=== PATIENT | female | born 1985 | race Caucasian/White ===

== ENCOUNTER 2020-10-28 22:17 | Emergency (ER) | payer SELFPAY ==
[~2020-10-28 22:17] MED LIST: PREN1TAB4
== END 2020-10-28 23:50 | disposition left against medical advice (07) ==
LOC: EDUNIT# 22:17 → ER 22:20
DX: O26.892 Other specified pregnancy related conditions, second trimester (principal); R10.9 Unspecified abdominal pain; Z3A.14 14 weeks gestation of pregnancy

== ENCOUNTER 2022-09-04 13:02 | Inpatient (IN) | payer OTHER, MEDICAID ==
[~2022-09-04] VITALS: Ht 155 cm; Wt 63.5 kg
[2022-09-04] VITALS (7 sets, daily range): BP systolic 111–129; BP diastolic 63–86
[2022-09-04] MEDS ORDERED: NS IV 1000 ML 1,000 ML IV STA (13:13)
--- NOTE | 2022-09-04 13:13 | ED Abdominal Pain ---
General Chief Complaint: Abdominal/GI Problems Stated Complaint: ABD PAIN Nursing Triage Note: PT TO [facility] BY [facility] WITH CC OF RLQ PAIN FOR ABOUT 4 DAYS, WAS TOLD 2 DAYS AGO AT ANOTHER HOSP THAT IT WAS HER GALLBLADDER Source of Information: Patient, EMS History of Present Illness Date Seen by Provider: Sep 04, 2022 Time Seen by Provider: 13:05 Initial Comments Patient is a 37-year-old female who presents to the emergency room with a chief complaint of right lower quadrant abdominal pain onset 3 to 4 days ago. She has been seen by another facility and was told that possibly her gallbladder was bad. She has been taking frzy-bhw-wkgdvlq vitamins and supplements for the pain. Endorses nausea without vomiting. Decreased stool output. She states its been 4 to 5 days. Subjective fever. Pain much worse today. She has had no prior abdominal surgeries. She rates her pain at "10 out of 10".. She is currently on her menstrual cycle at the tail end. It started about 4 days ago. History of hypothyroid and hypertension currently on no medications. No allergies to medications. She is a smoker, denies recreational drugs and daily alcohol use. Was brought in by EMS. They were unable to get an IV or give her any medications. Timing/Duration: 3-4 Days Severity/Quality: Severe, Sharp Location: RLQ Radiation: Other (all over abdomen) Modifying Factors: Worsens With Movement Associated Symptoms: Fever/Chills (subjective), Nausea/Vomiting (nausea without vomiting), Swelling/Mass in Abdomen, Other (decreased stool output) Allergies and Home Medications Allergies Coded Allergies: No Known Drug Allergies (Unverified , 06/18/07) Patient Home Medication List Home Medication List Reviewed: Yes Doxycycline Hyclate (Doxycycline Hyclate) 100 Mg Capsule, 100 MG PO BID Prescribed by: DIEGO RICHEY on 09/05/22 1057 Hydrocodone/Acetaminophen (Hydrocodone-Acetamin 5-325 mg) 5 Mg-325 Mg Tablet, 1 TAB PO Q4H PRN for PAIN-MODERATE (5-7) Prescribed by: DIEGO RICHEY on 09/05/22 1100 Metronidazole (Metronidazole) 500 Mg Tablet, 500 MG PO BID Prescribed by: DIEGO RICHEY on 09/05/22 1057 Vit/Fe Fumarate/Fa ( 1-1 Tablet) 1 Each Tablet, (Reported) Entered as Reported by: NIKOS PRINCE on 05/21/09 4029 Review of Systems Review of Systems Constitutional: see HPI Respiratory: No Symptoms Reported Cardiovascular: No Symptoms Reported Gastrointestinal: Abdominal Pain, Nausea, Poor Appetite Genitourinary: No Symptoms Reported Musculoskeletal: no symptoms reported Skin: no symptoms reported Past Tembvtz-Vkfdbm-Xhdzwy Hx Past Medical History Last Menstrual Period: Sep 04, 2022 Reproductive Disorders: No Physical Exam Vital Signs Vital Signs - First Documented 09/04/22 13:07 Temp 37.2 Pulse 103 Resp 22 B/P (MAP) 161/104 (123) Pulse Ox 100 O2 Delivery Room Air Capillary Refill : Less Than 3 Seconds Height/Weight/BMI Height: '" Weight: lbs. oz. kg; 26.00 BMI Method: General Appearance: WD/WN, moderate distress HEENT: PERRL/EOMI Respiratory: lungs clear, normal breath sounds, no respiratory distress, no accessory muscle use Cardiovascular: regular rate, rhythm, tachycardia (110), other (hypertensive) Gastrointestinal: soft, abnormal bowel sounds (Hypoactive), distended, guarding, rebound, tenderness Extremities: normal range of motion, normal inspection, no pedal edema, normal capillary refill Neurologic/Psychiatric: alert, other (anxious) Skin: warm/dry, pallor Progress/Results/Core Measures Results/Orders Lab Results Laboratory Tests Test 09/04/22 13:30 Range/Units White Blood Count 13.1 H 4.3-11.0 10^3/uL Red Blood Count 4.36 3.80-5.11 10^6/uL Hemoglobin 10.1 L 11.5-16.0 g/dL Hematocrit 36 35-52 % Mean Corpuscular Volume 83 80-99 fL Mean Corpuscular Hemoglobin 23 L 25-34 pg Mean Corpuscular Hemoglobin Concent 28 L 32-36 g/dL Red Cell Distribution Width 18.8 H 10.0-14.5 % Platelet Count 319 130-400 10^3/uL Mean Platelet Volume 12.0 9.0-12.2 fL Immature Granulocyte % (Auto) 0 % Neutrophils (%) (Auto) 78 H 42-75 % Lymphocytes (%) (Auto) 9 L 12-44 % Monocytes (%) (Auto) 11 0-12 % Eosinophils (%) (Auto) 1 0-10 % Basophils (%) (Auto) 1 0-10 % Neutrophils # (Auto) 10.3 H 1.8-7.8 10^3/uL Lymphocytes # (Auto) 1.2 1.0-4.0 10^3/uL Monocytes # (Auto) 1.4 H 0.0-1.0 10^3/uL Eosinophils # (Auto) 0.1 0.0-0.3 10^3/uL Basophils # (Auto) 0.1 0.0-0.1 10^3/uL Immature Granulocyte # (Auto) 0.1 0.0-0.1 10^3/uL Sodium Level 136 135-145 MMOL/L Potassium Level 4.6 3.6-5.0 MMOL/L Chloride Level 106 98-107 MMOL/L Carbon Dioxide Level 20 L 21-32 MMOL/L Anion Gap 10 5-14 MMOL/L Blood Urea Nitrogen 7 7-18 MG/DL Creatinine 0.73 0.60-1.30 MG/DL Estimat Glomerular Filtration Rate 109 BUN/Creatinine Ratio 10 Glucose Level 98 70-105 MG/DL Calcium Level 8.9 8.5-10.1 MG/DL Corrected Calcium 9.1 8.5-10.1 MG/DL Total Bilirubin 0.6 0.1-1.0 MG/DL Aspartate Amino Transf (AST/SGOT) 35 H 5-34 U/L Alanine Aminotransferase (ALT/SGPT) 41 0-55 U/L Alkaline Phosphatase 54 40-136 U/L Total Protein 7.9 6.4-8.2 GM/DL Albumin 3.8 3.2-4.5 GM/DL Serum Test, Qualitative NEGATIVE NEGATIVE My Orders Orders - JOSEPH OROZCO MD Ed Iv/Invasive Line Start (09/04/22 13:13) Cbc With Automated Diff (09/04/22 13:13) Comprehensive Metabolic Panel (09/04/22 13:13) Hcg,Qualitative Serum (09/04/22 13:13) Ns Iv 1000 Ml (Sodium Chloride 0.9%) (09/04/22 13:13) Ondansetron Injection (Zofran Injectio (09/04/22 13:15) Ct Abd/Pelv W (Appendicitis) (09/04/22 13:13) Iohexol Injection (Omnipaque 350 Mg/Ml 1 (09/04/22 13:30) Received Contrast (Hold Metformin- Contr (09/04/22 13:30) Ns (Ivpb) (Sodium Chloride 0.9% Ivpb Bag (09/04/22 13:30) Fentanyl Inj (Sublimaze Injection) (09/04/22 13:45) Fentanyl Inj (Sublimaze Injection) (09/04/22 14:00) Fentanyl Inj (Sublimaze Injection) (09/04/22 15:15) Bupivacaine 0.5% W/Epi Inj (Sensorcaine (09/04/22 16:19) Medications Given in ED Vital Signs/I&O 09/04/22 13:07 Temp 37.2 Pulse 103 Resp 22 B/P (MAP) 161/104 (123) Pulse Ox 100 O2 Delivery Room Air Blood Pressure Mean: 123 Progress Progress Note : Time: 14:50 Progress Note Patient seen and evaluated by me. Evaluation today includes physical exam, CBC, Chem-12, test, CT scan of the abdomen and pelvis with IV contrast. Pertinent physical exam findings include petite female patient in moderate to severe distress due to abdominal pain. Tearful, hypertensive, slightly tachycardic. Temperature 99. Heart is regular, lungs are clear. Abdomen is distended with involuntary guarding, hypoactive bowel sounds positive heeltap, exquisite tenderness to light palpation of the anterior abdomen. Differential diagnosis based on history and physical exam acute ruptured appendicitis, bowel obstruction, ovarian torsion. Labs independently reviewed and interpreted by me. CBC shows a white count of 13.1 patient is slightly anemic with a hemoglobin of 10.1 hematocrit of 36. Platelets are 319. Her MCH is slightly low at 23 MCHC at 28. Her serum test is negative. Chemistry is grossly unremarkable except for a slightly decreased CO2 at 20 and an AST one-point above baseline at 35. CT scan of the abdomen pelvis read by radiologist shows multiple large 1-1/2 cm stones in the gallbladder. No real other acute pathology identified. Appendix is not visualized. Patient is treated in the emergency department with multiple doses of fentanyl as well as IV fluids and Zofran. Currently resting curled up on her right side not moving. She has recurrence of significant pain if she moves at all. Case was discussed with Dr. Richey on for general surgery who accepts the patient for admission/laparoscopic cholecystectomy. patient's last oral intake was approximately 2 hours prior to arrival she had a half of a fruit smoothie. Diagnostic Imaging Diagonstic Imaging: CT Comments [facility], [place] NAME: ELBA HUANG [facility] REC#: [id number] PT STATUS: REG ER : 1985 PHYSICIAN: JOSEPH OROZCO MD ADMIT DATE: 09/04/22/ER Draft Date of Exam:09/04/22 CT ABD/PELV W (APPENDICITIS) PROCEDURE: CT abdomen and pelvis with contrast, rule out appendicitis. TECHNIQUE: Multiple contiguous axial images were obtained through the abdomen and pelvis after the administration of intravenous contrast. All CT scans use one or more of the following dose optimizing techniques: automated exposure control, MA and/or KvP adjustment based on patient size and exam type or iterative reconstruction. INDICATION: Right lower quadrant pain x4 days. Lung bases are clear. Liver appears normal. There are approximately 6 stones in the gallbladder, each measuring about 1.5 cm in diameter. Pancreas is normal. Spleen is not enlarged. Adrenals are normal. Kidneys are unremarkable. Small bowel is not dilated. The appendix not discretely seen but there is no evidence for appendicitis. Colon is unremarkable. Uterus and ovaries appear normal. There is no free fluid or intraperitoneal free air. IMPRESSION: Cholecystolithiasis. Dictated on workstation # [id number] Dict: 09/04/22 1428 Trans: 09/04/22 1437 CVB [id number] Interpreted by: ALBA RAYMOND MD Electronically signed by: Departure Communication (Admissions) Time/Spoke to Admitting Phy: 14:[address] Richey - will take to the OR Impression Primary Impression: Abdominal pain Qualified Codes: R10.84 - Generalized abdominal pain Additional Impression: Cholecystolithiasis Qualified Codes: K80.12 - Calculus of gallbladder with acute and chronic cholecystitis without obstruction Disposition: ADMITTED INPATIENT Condition: Stable Admissions Decision to Admit Reason: Admit from ER (General) Decision to Admit/Date: Sep 04, 2022 Time/Decision to Admit Time: 14:49 Departure-Patient Inst. Referrals: RITA OCONNELL (PCP) Primary Care Physician [facility] (Family) Primary Care Physician Scripts Hydrocodone/Acetaminophen (Hydrocodone-Acetamin 5-325 mg) 5 Mg-325 Mg Tablet 1 TAB PO Q4H PRN for PAIN-MODERATE (5-7), #20 TAB Prov: DIEGO RICHEY DO 09/05/22 Doxycycline Hyclate (Doxycycline Hyclate) 100 Mg Capsule 100 MG PO BID, #14 CAP Prov: DIEGO RICHEY DO 09/05/22 Metronidazole (Metronidazole) 500 Mg Tablet 500 MG PO BID, #14 TAB Prov: DIEGO RICHEY DO 09/05/22 Copy Copies To 1: DIEGO RICHEY KATHRYN M MD Sep 04, 2022 13:13
[2022-09-04] MEDS ORDERED: ONDANSETRON 4 MG/2 ML (SDV) Z0FRAN IVP ONE (13:15)
[2022-09-04] MEDS ORDERED: fentaNYL INJ 100 MCG/2 ML AMP IVP ONE ×4 (13:15→16:45)
[2022-09-04] MEDS ORDERED: IOHEXOL 350 MG/ML 100 ML (OMNIPAQUE 350) VIAL IV ONE (13:30)
[2022-09-04] MEDS ORDERED: NS 100 ML (IVPB) BAG IV ONE (13:30)
[2022-09-04] MEDS ORDERED: HOLD METFORMIN - RECEIVED CONTRAST 20 ML VIAL IV SCH (13:30)
[2022-09-04 13:40] LABS: BASOPHILS # (AUTO) 0.1 10^3/uL (0.0-0.1); BASOPHILS % (AUTO) 1 % (0-10); EOSINOPHILS # (AUTO) 0.1 10^3/uL (0.0-0.3); EOSINOPHILS % (AUTO) 1 % (0-10); HEMATOCRIT 36 % (35-52); HEMOGLOBIN 10.1 g/dL (11.5-16.0); LYMPHOCYTES # (AUTO) 1.2 10^3/uL (1.0-4.0); LYMPHOCYTES % (AUTO) 9 % (12-44); MEAN CORPUSCULAR HEMOGLOBIN 23 pg (25-34); MEAN CORPUSCULAR HGB CONC 28 g/dL (32-36); MEAN CORPUSCULAR VOLUME 83 fL (80-99); MONOCYTES # (AUTO) 1.4 10^3/uL (0.0-1.0); MONOCYTES % (AUTO) 11 % (0-12); NEUTROPHILS # (AUTO) 10.3 10^3/uL (1.8-7.8); NEUTROPHILS % (AUTO) 78 % (42-75); PLATELET COUNT 319 10^3/uL (130-400); WHITE BLOOD COUNT 13.1 10^3/uL (4.3-11.0)
[2022-09-04] MEDS ORDERED: fentaNYL INJ 100 MCG/2 ML AMP IM ONE (13:45)
[2022-09-04 13:50] LABS: ALBUMIN 3.8 GM/DL (3.2-4.5)
[2022-09-04 13:51] LABS: POTASSIUM 4.6 MMOL/L (3.6-5.0)
[2022-09-04 13:52] LABS: CALCIUM 8.9 MG/DL (8.5-10.1)
[2022-09-04 13:53] LABS: TOTAL PROTEIN 7.9 GM/DL (6.4-8.2)
[2022-09-04 13:55] LABS: BILIRUBIN,TOTAL 0.6 MG/DL (0.1-1.0)
[2022-09-04 13:57] LABS: CREATININE SERUM 0.73 MG/DL (0.60-1.30)
--- NOTE | 2022-09-04 14:38 | Diagnostic Imaging Report ---
PROCEDURE: CT abdomen and pelvis with contrast, rule out appendicitis. TECHNIQUE: Multiple contiguous axial images were obtained through the abdomen and pelvis after the administration of intravenous contrast. All CT scans use one or more of the following dose optimizing techniques: automated exposure control, MA and/or KvP adjustment based on patient size and exam type or iterative reconstruction. INDICATION: Right lower quadrant pain x4 days. Lung bases are clear. Liver appears normal. There are approximately 6 stones in the gallbladder, each measuring about 1.5 cm in diameter. Pancreas is normal. Spleen is not enlarged. Adrenals are normal. Kidneys are unremarkable. Small bowel is not dilated. The appendix not discretely seen but there is no evidence for appendicitis. Colon is unremarkable. Uterus and ovaries appear normal. There is no free fluid or intraperitoneal free air. IMPRESSION: Cholecystolithiasis. Dictated by: Dictated on workstation # [id number]
--- NOTE | 2022-09-04 15:14 | Consultation - Surgery ---
History of Present Illness History of Present Illness Patient Consulted On(anmol/time) 09/04/22 15:09 Time Seen by Provider: 14:52 Reason for Visit: RLQ pain History of Present Illness Surgery asked to consult regarding Cholecystitis. HPI per ED: Patient is a 37-year-old female who presents to the emergency room with a chief complaint of right lower quadrant abdominal pain onset 3 to 4 days ago. She has been seen by another facility and was told that possibly her gallbladder was bad. She has been taking zncp-uhv-xmsuazi vitamins and supplements for the pain. Endorses nausea without vomiting. Decreased stool output. She states its been 4 to 5 days. Subjective fever. Pain much worse today. She has had no prior abdominal surgeries. She rates her pain at "10 out of 10".. She is currently on her menstrual cycle at the tail end. It started about 4 days ago. History of hypothyroid and hypertension currently on no medications. No allergies to medications. She is a smoker, denies recreational drugs and daily alcohol use. Was brought in by EMS. They were unable to get an IV or give her any medications. Timing/Duration: 3-4 Days Severity/Quality: Severe, Sharp Location: RLQ Radiation: Other (all over abdomen) Modifying Factors: Worsens With Movement Associated Symptoms: Fever/Chills (subjective), Nausea/Vomiting (nausea without vomiting), Swelling/Mass in Abdomen, Other (decreased stool output) Patient presents to the ED for RLQ pain that she says radiates into her back and to her right shoulder blade. She says that this pain has been going on for the past 3 to 4 days and has had decreased appetite. She says that the pain has became more severe today and that is why they presented. She states that she took tylenol last night but it did not help with the pain very much. She states that the pain is a stabbing and it goes off an on but is on more than off. She rates the pain as a 9/10 and says that the pain happens no matter what time of day that it is. She does currently smoke every day. She says that she has a history of recent heavy blood loss due to her menses and is worried about losing too much blood during surgery. Allergies and Home Medications Allergies Coded Allergies: No Known Drug Allergies (Unverified , 06/18/07) Patient Home Medication List Home Medication List Reviewed: Yes Vit/Fe Fumarate/Fa ( 1-1 Tablet) 1 Each Tablet, (Reported) Entered as Reported by: NIKOS PRINCE on 05/21/09 2834 Past Oysucxd-Taxrac-Gcztra Hx Patient Social History Smoking Status: Current Everyday Smoker Alcohol Use?: No Seasonal Allergies Seasonal Allergies: No Surgeries History of Surgeries: No Respiratory History of Respiratory Disorde: No Cardiovascular History of Cardiac Disorders: Yes Cardiac Disorders: Hypertension Neurological History of Neurological Disord: Yes Neurological Disorders: Headaches /Migraines Reproductive System Hx Reproductive Disorders: No Genitourinary History of Genitourinary Disor: No Gastrointestinal History of Gastrointestinal Di: Yes Gastrointestinal Disorders: Gall Bladder Disease Musculoskeletal History of Musculoskeletal Dis: Yes Musculoskeletal Disorders: Chronic Back Pain Endocrine History of Endocrine Disorders: Yes Endocrine Disorders: Hypothyroidsim HEENT History of HEENT Disorders: No Loss of Vision: Denies Hearing Impairment: Denies Cancer History of Cancer: No Psychosocial History of Psychiatric Problem: No Integumentary History of Skin or Integumenta: No Family Medical History Significant Family History: Heart Disease (denied), Diabetes (denied) Review of Systems-General Constitutional: No chills; diaphoresis, weakness EENTM: No hearing loss, No double vision Respiratory: No cough, No hemoptysis, No short of breath Cardiovascular: No chest pain, No edema, No syncope Gastrointestinal: RUQ, RLQ, abdominal pain (Pain to all quadrants but states it is worse in the RLQ and then the RUQ); No jaundice; loss of appetite Genitourinary: No dysuria, No frequency, No hematuria Musculoskeletal: back pain; No joint pain, No joint swelling Skin: No change in color, No change in hair/nails Psychiatric/Neurological: Denies Anxiety, Denies Depressed, Denies Seizure Physical Exam-General Problems Physical Exam Vital Signs Vital Signs - First Documented 09/04/22 13:07 Temp 37.2 Pulse 103 Resp 22 B/P (MAP) 161/104 (123) Pulse Ox 100 O2 Delivery Room Air Capillary Refill : Less Than 3 Seconds General Appearance: WD/WN, severe distress (secondary to pain) Eyes: Bilateral Eye PERRL, Bilateral Eye EOMI HEENT: pharynx normal; No scleral icterus (R), No scleral icterus (L) Neck: non-tender, supple Respiratory: chest non-tender, lungs clear, no respiratory distress, crackles, rales Cardiovascular: regular rate, rhythm, no murmur Peripheral Pulses: 4+ Carotid (R), 4+ Carotid (L), 4+ Radial Pulses (R), 4+ Radial Pulses (L) Gastrointestinal: no organomegaly, guarding (voluntary), rebound, tenderness, hernia (incarcerated umbilical hernia) Rectal: deferred Back: no CVA tenderness, no vertebral tenderness Neurologic/Psychiatric: alert, oriented x 3 Skin: normal color, warm/dry Lymphatic: no adenopathy (neck, supraclavicular and inguinal) Data Review Labs Laboratory Tests 09/04/22 13:30: White Blood Count 13.1H, Red Blood Count 4.36, Hemoglobin 10.1L, Hematocrit 36, Mean Corpuscular Volume 83, Mean Corpuscular Hemoglobin 23L, Mean Corpuscular Hemoglobin Concent 28L, Red Cell Distribution Width 18.8H, Platelet Count 319, Mean Platelet Volume 12.0, Immature Granulocyte % (Auto) 0, Neutrophils (%) (Auto) 78H, Lymphocytes (%) (Auto) 9L, Monocytes (%) (Auto) 11, Eosinophils (%) (Auto) 1, Basophils (%) (Auto) 1, Neutrophils # (Auto) 10.3H, Lymphocytes # (Auto) 1.2, Monocytes # (Auto) 1.4H, Eosinophils # (Auto) 0.1, Basophils # (Auto) 0.1, Immature Granulocyte # (Auto) 0.1, Sodium Level 136, Potassium Level 4.6, Chloride Level 106, Carbon Dioxide Level 20L, Anion Gap 10, Blood Urea Nitrogen 7, Creatinine 0.73, Estimat Glomerular Filtration Rate 109, BUN/Creatinine Ratio 10, Glucose Level 98, Calcium Level 8.9, Corrected Calcium 9.1, Total Bilirubin 0.6, Aspartate Amino Transf (AST/SGOT) 35H, Alanine Aminotransferase (ALT/SGPT) 41, Alkaline Phosphatase 54, Total Protein 7.9, Albumin 3.8, Serum Test, Qualitative NEGATIVE Radiology Date of Exam:09/04/22 CT ABD/PELV W (APPENDICITIS) PROCEDURE: CT abdomen and pelvis with contrast, rule out appendicitis. TECHNIQUE: Multiple contiguous axial images were obtained through the abdomen and pelvis after the administration of intravenous contrast. All CT scans use one or more of the following dose optimizing techniques: automated exposure control, MA and/or KvP adjustment based on patient size and exam type or iterative reconstruction. INDICATION: Right lower quadrant pain x4 days. Lung bases are clear. Liver appears normal. There are approximately 6 stones in the gallbladder, each measuring about 1.5 cm in diameter. Pancreas is normal. Spleen is not enlarged. Adrenals are normal. Kidneys are unremarkable. Small bowel is not dilated. The appendix not discretely seen but there is no evidence for appendicitis. Colon is unremarkable. Uterus and ovaries appear normal. There is no free fluid or intraperitoneal free air. IMPRESSION: Cholecystolithiasis. Dictated on workstation # [id number] Dict: 09/04/22 1428 Trans: 09/04/22 1437 CVB [id number] Interpreted by: ALBA RAYMOND MD Assessment/Plan Assessment/Plan Assessment/Plan Acute Cholecycystitis with Cholelithiasis RLQ pain RUQ pain HTN Hypothyroid Pt has severe pain most likely due to Acute Cholecystitis. I reviewed her CT myself and spoke with the ED provider. She has multiple large stones in the gallbladder, has had pain for at least 4 days and it is not being helped at all with pain medications. I believe she would benefit from having her gallbladder removed. Will start IV fluids, IV ABX manager of distribution to OR, pain meds and anti-emetics as needed. I discussed the surgery with her and we went over risks and complications not limited to pain, bleeding, infection, scar, damage to bowel or bile ducts and need for further procedure. I did talk to her about the fact that this might not help her pain, but it is most likely cause. Will get consent for Laparscopic Cholecystectomy, possible open and all other indicated procedures. I talked to her about cholangiogram as well. She had a smoothie at around 11am, but is in such pain that I think waiting until 7 is unnecessary. I did talk to her about the risks of aspiration and she would like to not wait. DIEGO RICHEY DO Sep 04, 2022 15:14
[2022-09-04] MEDS ORDERED: BUP/EPI 0.5% 1:200,000 (SENSORCAINE) 30 ML VIAL ONE (16:19)
[2022-09-04] MEDS ORDERED: SEVOFLURANE (ULTANE) 15 ML INHAL SOLN ONE ×3 (16:26→18:20)
[2022-09-04] MEDS ORDERED: LIDOCAINE PF 2% 5 ML (XYLOCAINE) VIAL ONE (16:26)
[2022-09-04] MEDS ORDERED: ONDANSETRON 4 MG/2 ML (SDV) Z0FRAN ONE (16:26)
[2022-09-04] MEDS ORDERED: proPOfol 200 MG/20 ML (DIPRIVAN) VIAL IV ONE ×3 (16:26→18:07)
[2022-09-04] MEDS ORDERED: fentaNYL INJ 100 MCG/2 ML AMP ONE (16:27)
[2022-09-04] MEDS ORDERED: MIDAZOLAM 2 MG/2 ML (VERSED) VIAL ONE (16:27)
[2022-09-04] MEDS ORDERED: PHENYLEPHRINE 100 MCG/ML 10 ML (ANESTHESIA) SYR ONE (16:35)
[2022-09-04] MEDS ORDERED: METOCLOPRAMIDE INJ 10 MG/2 ML (REGLAN) ONE (16:36)
[2022-09-04] MEDS ORDERED: morphine INJ 10 MG/ML 1ML (SYR OR VIAL) ONE (16:43)
[2022-09-04] MEDS ORDERED: LACTATED RINGERS 1,000 ML IV PRN (16:45)
[2022-09-04] MEDS ORDERED: morphine INJ 10 MG/ML 1ML (SYR OR VIAL) IVP ONE (16:45)
[2022-09-04] MEDS ORDERED: ceFAZolin INJECTION 2,000 MG in NS (IVPB) 50 ML IV NR (16:45)
[2022-09-04] MEDS ORDERED: MEPERIDINE (DEMEROL) INJ 50 MG/ML IVP ONE (16:45)
[2022-09-04] MEDS ORDERED: ONDANSETRON 4 MG/2 ML (SDV) Z0FRAN IVP PRN ×2 (16:45→19:00)
[2022-09-04] MEDS ORDERED: ROCURONIUM 50 MG/5 ML (ZEMURON) VIAL IV ONE (18:20)
[2022-09-04] MEDS ORDERED: morphine INJ 4 MG/ML 1 ML (VIAL/SYRINGE) IVP PRN (19:00)
--- NOTE | 2022-09-04 19:04 | Progress Note-Post Operative ---
Post-Operative Progess Note Surgeon (s)/2Nd Grade Teacher (s) Surgeon DIEGO RICHEY DO 2Nd Grade Teacher: Ry Pre-Operative Diagnosis Acute Cholecystitis with Cholelithiasis Post-Operative Diagnosis Tubo-Ovarian abscess Inflammed appendix Intra-Abdominal abscess Procedure & Operative Findings Date of Procedure 09/04/22 Procedure Performed/Findings Diagnostic Laparoscopy with Drainage of Intra-abdominal abscess Laparoscopic Appendectomy Anesthesia Type GET Estimated Blood Loss Estimated blood loss (mL): scant Specimens/Packing Specimens Removed appendix Packin DIEGO RICHYE DO Sep 04, 2022 19:04
[2022-09-04] MEDS: LACTATED RINGERS 1,000 ML IV SCH (20:36)
[2022-09-04] MEDS ORDERED: PIPERACILLIN SODIUM/TAZOBACTAM 4.5 GM in NS (IVPB) 100 ML IV ONE (21:00)
[2022-09-04] MEDS: DOXYCYCLINE INJECTION 100 MG in NS (IVPB) 100 ML IV SCH (22:10)
[2022-09-05] VITALS (7 sets, daily range): BP systolic 116–165; BP diastolic 74–106
--- NOTE | 2022-09-05 01:28 | OPERATIVE REPORT ---
DATE OF SERVICE: 09/04/2022 PREOPERATIVE DIAGNOSIS: Acute cholecystitis, cholelithiasis. POSTOPERATIVE DIAGNOSES: 1. Tubo-ovarian abscess. 2. Inflamed appendix. 3. Intra-abdominal abscess. 4. Cholelithiasis. PROCEDURES: 1. Diagnostic laparoscopy with drainage of intraabdominal abscess. 2. Laparoscopic appendectomy. SURGEON: Juan Jose Guzmán DO PARK WORKER SUPERVISOR: Dr. Raza. ANESTHESIA: General endotracheal tube. SPECIMEN: Appendix. BLOOD LOSS: Scant. FLUIDS: Per anesthesia. POSTOPERATIVE CONDITION: Stable. INDICATIONS FOR PROCEDURE: The patient is a 37-year-old female who was having some abdominal pain started in the right lower quadrant, but was up into the right upper quadrant and she had had a CAT scan performed, which indicated at least cholecystitis with cholelithiasis, possibly acute. She had pain that was intractable to the pain medications and we elected to take her to the OR for laparoscopic cholecystectomy with cholangiogram. FINDINGS: The patient actually had purulent fluid all over the abdomen, but when looking at the gallbladder was white, did not look inflamed, did not appear to be edematous. The wall did not look thickened, was found what looked like a tubo-ovarian abscess. PROCEDURE NOTE: After informed consent was obtained, the patient was brought to the operating room and placed on the table in supine position. She was sterilely prepped and draped in normal fashion. Local lidocaine used to infiltrate the skin above the umbilicus, made an incision with #11 blade, carried down through skin into subcutaneous tissue, then deepened down to subcutaneous tissue with electrocautery down to the fascia. Fascia was then incised with electrocautery, bluntly into the abdomen, swept a finger around then placed 0 Vicryl [id number] suture. Placed a 12 mm trocar port and blew up the balloon to hold this in place and then insufflated the abdomen. Upon entry noted purulent fluid that was above the liver, the gallbladder looked like it was white, did not look inflamed. There was some fibrinous material around it. We elected to place another subxiphoid 5 mm port and VersaStep port under direct visualization in normal fashion. Local lidocaine 11 blade for stab incision and the port placed, started suctioning some of this purulent fluid out and looked at the gallbladder, gallbladder looked okay. Thought that maybe this was a perforated appendicitis, so started looking down in the pelvis, there was a lot of more purulent fluid in the pelvis. The small bowel was inflamed. We looked at the appendix, it was inflamed, a little bit red, but it did not look like it had perforated. So we started looking under the uterus and under the uterus, we encountered a lot more purulent fluid. This was, otherwise like a murky fluid and greenish, but this looked like gross purulent fluid. Looked at the right tube and ovary that was okay, but the left tube looked like it was inflamed, may be a hydrosalpinx and there was looked like was the most likely source of this pus, had placed 2 more ports, one in the right mid abdomen, a VersaStep port and then placed another suprapubic VersaStep port. At this point, we elected to take out the appendix since it looked inflamed, although I do not believe this was the cause of the problem, came across the mesoappendix with the LigaSure, clamping, coagulating and transecting until the appendix was only attached to the cecum and then switched to 5 mm camera brought the Endo-JULIO in and then cut across the base of the appendix with the Endo-JULIO, placed a bag into the abdomen, removed the appendix with a bag and then we copiously irrigated with normal saline, suctioned this out, trying to get all the purulent fluid out of the pelvis. We were able to get all this out and then we called Dr. Regalado to come down to take a look at the tubes. He recommended not removing it, but placing a drain and the patient on IV antibiotics for 48 hours. She agreed to that was a tubo-ovarian abscess. So, we washed out the abdomen as much as possible and then placed a drain, brought out through the suprapubic incision, sutured this in place with a 2-0 nylon, made sure this was tucked down under the uterus and the left pericolic gutter, laid in nicely. The patient had been in Trendelenburg. She was placed supine, removed all ports under direct visualization allowed pneumoperitoneum to escape, closed supraumbilical incision, closing the fascia with 0 Vicryl [id number] suture, then closed the incisions with 4-0 undyed Monocryl subcuticular stitches. Areas were cleaned and dried. Dermabond placed. The patient tolerated the procedure. Sponge and needle count was correct at the end of the case. Dr. Raza assisted in this case helping to make incisions, close incisions, identify anatomy and help determine what we should do during this case. Job ID: [id number] DocumentID: [id number] Dictated Date: 09/04/2022 19:08:50 Senior Electrical Design Engineer Date: 09/05/2022 01:27:00 Dictated By: JUAN JOSE GUZMÁN DO
[2022-09-05] MEDS: LACTATED RINGERS 1,000 ML IV SCH ×3 (06:48→19:53)
--- NOTE | 2022-09-05 07:41 | Anesthesia-General Post-Op ---
General Patient Condition Mental Status/LOC: Same as Preop Cardiovascular: Satisfactory Nausea/Vomiting: Absent Respiratory: Satisfactory Pain: Controlled Complications: Absent Post Op Complications Complications None Follow Up Care/Instructions Patient Instructions None needed. Anesthesia/Patient Condition Patient Condition Patient is doing well, no complaints, stable vital signs, no apparent adverse anesthesia problems. No complications reported per nursing. GOSIA GRIDER CRNA Sep 05, 2022 07:41
--- NOTE | 2022-09-05 08:38 | Progress Note - Surgery ---
JOSE MAJOR 09/05/22 0838: Subjective Time Seen by a Provider: 08:09 Subjective/Events-last exam Patient is seen this morning laying down in bed and is still very reserved and quiet like the day prior. She says that she is still having some discomfort in her abdomen but states it is nothing like yesterday, it is jsut soreness. She says that she is still having headaches currently. Her test was negative from the day prior in the ED. She was found during surgery to have a FOA so she was places on Doxycycline and Zosin under the consultation of Dr. Regalado. Dr. Regalado is also planning on coming down and paying her a visit today as well. She asked about her blood loss since she states she has had very heavy menses the past 2 months. She says she has not seen a PCP for the problem. She has no other complaints besides the headache. She understands that she will be in the hospital for a couple of days for monitoring and IV antibiotic use. Her WBC count is 13.1 today and her CO2 is currently sitting at 20.6 Review of Systems General: No Chills, No Night Sweats; Malaise (says she feels groggy. ) HEENT: Head Aches (Had a headache the day prior in the ED and continues to today. ); No Visual Changes, No Eye Pain, No Sore Throat Pulmonary: No Dyspnea, No Cough Cardiovascular: No: Chest Pain, Palpitations Gastrointestinal: Abdominal Pain (tenderness to port sites); No: Nausea, Vomiting Genitourinary: No Dysuria, No Incontinence Musculoskeletal: No: shoulder pain, back pain Neurological: No: Weakness, Numbness Focused Exam Respiratory: Chest Non Tender, No Accessory Muscle Use, No Respiratory Distress; No Crackles, No Decreased Breath Sounds, No Rales Cardiovascular: Regular Rate, Rhythm, No Edema, No Gallop, No Murmur; No Diastolic Murmur, No Systolic Murmur Peripheral Pulses: 4+ Carotid (R), 4+ Carotid (L), 4+ Radial Pulses (R), 4+ Radial Pulses (L) Objective Exam Vital Signs Date Time Temp Pulse Resp B/P (MAP) Pulse Ox O2 Delivery O2 Flow Rate FiO2 09/05/22 07:21 36.6 78 18 151/99 (116) 98 Room Air 09/05/22 03:24 36.2 78 16 116/74 (88) 97 Room Air 09/04/22 23:05 36.6 87 18 129/86 (100) 96 Room Air 09/04/22 20:00 37.3 91 16 124/65 (84) 97 Room Air 09/04/22 19:39 37.8 20 111/74 (86) 98 Room Air 09/04/22 19:20 Room Air 09/04/22 19:10 20 114/65 (81) 100 Room Air 09/04/22 19:05 Room Air 09/04/22 19:00 20 122/75 (91) 100 OxyMask 4.00 09/04/22 18:50 OxyMask 4.00 09/04/22 18:50 20 127/67 (87) 100 OxyMask 4.00 09/04/22 18:36 37.8 16 121/63 (82) 100 OxyMask 10 09/04/22 18:36 OxyMask 10 09/04/22 16:49 37.0 23 20 133/84 98 Room Air 09/04/22 13:07 37.2 103 22 161/104 (123) 100 Room Air I & O 09/05/22 07:00 Intake Total 1900 ml Output Total 720 ml Balance 1180 ml Capillary Refill : Less Than 3 Seconds General Appearance: No Apparent Distress, WD/WN HEENT: PERRL/EOMI Neck: Non Tender, Supple Respiratory: Chest Non Tender, Lungs Clear, No Accessory Muscle Use, No Respiratory Distress; No Crackles, No Decreased Breath Sounds, No Rales Cardiovascular: Regular Rate, Rhythm, No Gallop, No Murmur; No Diastolic Murmur, No Systolic Murmur Peripheral Pulses: 4+ Carotid (R), 4+ Carotid (L), 4+ Radial Pulses (R), 4+ Radial Pulses (L) Gastrointestinal: no organomegaly, guarding (voluntary), rebound, tenderness, hernia (incarcerated umbilical hernia) Neurologic/Psychiatric: Alert, Oriented x3 Lymphatic: No Adenopathy (neck, supra and subclavicular. ) Results Lab Laboratory Tests 09/04/22 13:30: White Blood Count 13.1H, Red Blood Count 4.36, Hemoglobin 10.1L, Hematocrit 36, Mean Corpuscular Volume 83, Mean Corpuscular Hemoglobin 23L, Mean Corpuscular Hemoglobin Concent 28L, Red Cell Distribution Width 18.8H, Platelet Count 319, Mean Platelet Volume 12.0, Immature Granulocyte % (Auto) 0, Neutrophils (%) (Auto) 78H, Lymphocytes (%) (Auto) 9L, Monocytes (%) (Auto) 11, Eosinophils (%) (Auto) 1, Basophils (%) (Auto) 1, Neutrophils # (Auto) 10.3H, Lymphocytes # (Auto) 1.2, Monocytes # (Auto) 1.4H, Eosinophils # (Auto) 0.1, Basophils # (Auto) 0.1, Immature Granulocyte # (Auto) 0.1, Sodium Level 136, Potassium Level 4.6, Chloride Level 106, Carbon Dioxide Level 20L, Anion Gap 10, Blood Urea Nitrogen 7, Creatinine 0.73, Estimat Glomerular Filtration Rate 109, BUN/Creatinine Ratio 10, Glucose Level 98, Calcium Level 8.9, Corrected Calcium 9.1, Total Bilirubin 0.6, Aspartate Amino Transf (AST/SGOT) 35H, Alanine Aminotransferase (ALT/SGPT) 41, Alkaline Phosphatase 54, Total Protein 7.9, Albumin 3.8, Serum Test, Qualitative NEGATIVE 09/04/22 19:22: Assessment/Plan Assessment/Plan Assessment/Plan Acute Cholecycystitis with Cholelithiasis RLQ pain RUQ pain HTN Hypothyroid Patient had a laproscopic appendectomy the night prior as well as a FOA was found. She had recently been in the ED in for heavy menses that she has been having for the past couples of months. She is currently on Zosin as well as Doxycycline to prevent any further infection and will be monitored over the next couple of days. She currently is dealing with a headache and that is her biggest concern, will see about giving her PO tylenol. She is on a liquid diet currently and is eating her jello and drinking water and juice. JUAN JOSE GUZMÁN DO 09/05/22 1103: Subjective Date Seen by a Provider: Sep 05, 2022 Subjective/Events-last exam Pt seen and examined, she is tolerating diet and pain controlled. Her main complaint is headache. Review of Systems HEENT: Head Aches (Had a headache the day prior in the ED and continues to today. ); No Visual Changes Cardiovascular: No: Chest Pain, Palpitations Gastrointestinal: Abdominal Pain (tenderness to port sites); No: Nausea, Vomiting Objective Exam General Appearance: No Apparent Distress, WD/WN HEENT: PERRL/EOMI Respiratory: Chest Non Tender, Lungs Clear, Normal Breath Sounds, No Accessory Muscle Use, No Respiratory Distress Cardiovascular: Regular Rate, Rhythm, No Murmur Gastrointestinal: no organomegaly, guarding (voluntary), tenderness (mostly at incisions), hernia (incarcerated umbilical hernia) Neurologic/Psychiatric: Alert, Oriented x3 Assessment/Plan Assessment/Plan Assessment/Plan Acute Tubo-Ovarian Abscess S/P Lap Appy HTN Hypothyroid Pt will need 48 hours of IV ABS; Zosyn as well as Doxycycline. She currently is dealing with a headache and that is her biggest concern, will see about giving her PO tylenol. Will increase diet. Supervisory-Addendum Brief Verification & Attestation Participated in pt care: history, MDM, physical Personally performed: exam, history, MDM, supervision of care Care discussed with: Medical Student Procedures: n/a Verification and Attestation of Medical Student E/M Service A PA student performed and documented this service. I then reviewed and verified all information documented by the medical student and made modifications to such information, when appropriate. I personally performed a physical exam, medical decision making and then discussed any differences between the notes and made revisions as necessary to create one note. Juan Jose Guzmán , 09/05/22 , 11:03 JOSE MAJOR Sep 05, 2022 08:38 JUAN JOSE GUZMÁN DO Sep 05, 2022 11:03
[2022-09-05] MEDS: DOXYCYCLINE INJECTION 100 MG in NS (IVPB) 100 ML IV SCH ×2 (09:07→20:19)
[2022-09-05] MEDS: PANTOPRAZOLE 40 MG (PROTONIX) VIAL IVP SCH (09:07)
[2022-09-05] MEDS ORDERED: DOXY100C5 PO (10:57)
[2022-09-05] MEDS ORDERED: METR-145 PO (10:57)
--- NOTE | 2022-09-05 10:58 | Discharge Inst-Surgical ---
Discharge Inst-Surgical Depart Medication/Instructions New, Converted or Re-Newed RX: Transmitted to Pharmacy Patient Instructions Follow up Appt: Make appointment for 1 week. [phone] Instructions: No lifting greater than 20 pounds. No strenuous activity. May shower in 24 hours, no tub bath or soaking. Use incentive spirometer at home as directed. No Smoking Skin/Wound Care: May remove bandages in am. You need to leave the Dermabond on incision it will fall off on it's own. Symptoms to Report: Appetite Changes, Extremity Discoloration, Numbness/Tingling, Swelling Increased, Bleeding Excessive, Eyesight Changes, Pain Increased, Urine Color Change, Constipation(Persistent), Fever over 101 degree F, Pain/Pressure in chest, Urinating Difficulty, Cough Up/Vomit Blood, Heart Beat Irreg/Pounding, Pain/Pressure in jaw, Cramps in feet or legs, Lightheadedness, Pain/Pressure in shoulder, Diarrhea(Persistent), Memory Changes Suddenly, Questions/Concerns, Weight gain consecutive days, Dizziness/Fainting, Nausea/Vomiting, Shortness of Breath, Weight gain over 2 pounds If questions or concerns contact your physician Or seek help at emergency department. Activity Activity as Tolerated: Yes Activity Instructions: Avoid Stress to Incision Driving Instructions: No Driving/Refer to Dr. Lowe Discharge Diet: No Restrictions Diet After 24 Hours: Clear Liquid if Nauseous If Any Problems/Questions/Issu: Contact Your Physician, Go to Emergency Room Skin/Wound Care Infection Signs and Symptoms: Increased Redness, Foul Odor of Wound, Increased Drainage, Skin Itchy or Has a Rash, Increased Swelling, Temperature Above 101 F Wound Care Comment: WAYNE drain teaching Bathing Instructions: Shower Stitches/[place]/Dermabond Dis: Dermabond DIEGO RICHEY DO Sep 05, 2022 10:58
[2022-09-05] MEDS ORDERED: ACHD5005 PO (10:59)
[2022-09-05 11:49] LABS: BASOPHILS # (AUTO) 0.1 10^3/uL (0.0-0.1); BASOPHILS % (AUTO) 0 % (0-10); EOSINOPHILS # (AUTO) 0.1 10^3/uL (0.0-0.3); EOSINOPHILS % (AUTO) 0 % (0-10); HEMATOCRIT 29 % (35-52); HEMOGLOBIN 8.6 g/dL (11.5-16.0); LYMPHOCYTES % (AUTO) 14 % (12-44); MEAN CORPUSCULAR HEMOGLOBIN 23 pg (25-34); MEAN CORPUSCULAR HGB CONC 30 g/dL (32-36); MEAN CORPUSCULAR VOLUME 76 fL (80-99); MEAN PLATELET VOLUME 11.4 fL (9.0-12.2); MONOCYTES # (AUTO) 1.2 10^3/uL (0.0-1.0); MONOCYTES % (AUTO) 8 % (0-12); NEUTROPHILS # (AUTO) 11.2 10^3/uL (1.8-7.8); NEUTROPHILS % (AUTO) 77 % (42-75); PLATELET COUNT 349 10^3/uL (130-400); WHITE BLOOD COUNT 14.5 10^3/uL (4.3-11.0)
[2022-09-05 12:11] LABS: ALBUMIN 3.2 GM/DL (3.2-4.5); BILIRUBIN,TOTAL 0.5 MG/DL (0.1-1.0); CALCIUM 8.3 MG/DL (8.5-10.1); CREATININE SERUM 0.71 MG/DL (0.60-1.30); POTASSIUM 3.3 MMOL/L (3.6-5.0); TOTAL PROTEIN 6.6 GM/DL (6.4-8.2)
[2022-09-05 12:12] LABS: ANISOCYTOSIS SLIGHT; HYPOCHROMASIA SLIGHT; LYMPHOCYTES % (MANUAL) 20 %; MICROCYTOSIS SLIGHT; MONOCYTES % (MANUAL) 7 %; NEUTROPHILS % (MANUAL) 73 %
[2022-09-05] MEDS: HYDROcodone/APAP 7.5 MG/325 MG (LORTAB, LORCET PLUS) TABLET PO PRN (15:16)
[2022-09-05] MEDS ORDERED: ENALAPRIL 2.5 MG (VASOTEC) TAB PO PRN (15:45)
[2022-09-05] MEDS ORDERED: ENALAPRILAT 2.5 MG/2 ML (VASOTEC) VIAL IV PRN (15:45)
[2022-09-06] MEDS: HYDROcodone/APAP 7.5 MG/325 MG (LORTAB, LORCET PLUS) TABLET PO PRN ×2 (02:51→11:20)
[2022-09-06] MEDS: LACTATED RINGERS 1,000 ML IV SCH (03:19)
[2022-09-06 03:56] VITALS: BP 155/88
[2022-09-06 07:28] VITALS: BP 123/78
[2022-09-06] MEDS: PANTOPRAZOLE 40 MG (PROTONIX) VIAL IVP SCH (08:53)
[2022-09-06] MEDS: DOXYCYCLINE INJECTION 100 MG in NS (IVPB) 100 ML IV SCH (08:53)
[2022-09-06 11:12] VITALS: BP 121/75
[2022-09-06 11:13] VITALS: BP 121/75
--- NOTE | 2022-09-06 12:05 | Progress Note - Surgery ---
Subjective Date Seen by a Provider: Sep 06, 2022 Time Seen by a Provider: 11:59 Subjective/Events-last exam Pain controlled. Feeling better. Drain murky/serous. No fever. Using IS minimal. Tolerating diet. Denies n/v fever sweats chills shortness of breath or chest pain. Objective Exam Vital Signs Date Time Temp Pulse Resp B/P (MAP) Pulse Ox O2 Delivery O2 Flow Rate FiO2 09/06/22 11:13 36.6 77 18 121/75 (90) 96 Room Air 09/06/22 11:12 36.6 77 18 121/75 (90) 96 Room Air 09/06/22 08:00 Room Air 09/06/22 07:28 36.7 73 18 123/78 (93) 97 Room Air 09/06/22 06:02 Room Air 0.00 09/06/22 03:56 36.2 74 18 155/88 (110) 97 Room Air 09/05/22 23:50 36.4 72 18 155/86 (109) 98 Room Air 09/05/22 20:00 36.6 72 20 156/98 (117) 96 Room Air 09/05/22 17:26 151/96 (114) 09/05/22 15:50 36.6 74 20 165/106 (125) 97 Room Air I & O 09/06/22 07:00 Intake Total 670 ml Output Total 1800 ml Balance -1130 ml Capillary Refill : Less Than 3 Seconds General Appearance: No Apparent Distress, WD/WN HEENT: PERRL/EOMI Neck: Non Tender, Supple Respiratory: Chest Non Tender, No Accessory Muscle Use, No Respiratory Distress Cardiovascular: Regular Rate, Rhythm, No Murmur Peripheral Pulses: 4+ Carotid (R), 4+ Carotid (L), 4+ Radial Pulses (R), 4+ Radial Pulses (L) Gastrointestinal: no organomegaly, tenderness (minimal incisional, drain murky/serous), hernia (incarcerated umbilical hernia) Neurologic/Psychiatric: Alert, Oriented x3 Skin: Normal Color, Warm/Dry Lymphatic: No Adenopathy (neck, supra and subclavicular. ) Assessment/Plan Assessment/Plan Assessment/Plan Acute Tubo-Ovarian Abscess S/P Lap Appy with drainage of intrabdominal abscess HTN Hypothyroid Tolerating diet. Pain controlled. Dc home. Discussed using IS at home. Complete all abx. Follow up outpatient with Dr. Guzmán. JOSE LY DO Sep 06, 2022 12:05
[2022-09-06 13:19] VITALS: BP 121/75
== END 2022-09-06 13:23 | disposition home or self-care (01) | DRG 423 ==
LOC: EDUNIT# 13:02 → ER 13:03 → SDC 16:43 → 4TH 19:30
PROVIDERS: ADMIT Surgery; ATTEND Surgery
PROC: 0DTJ4ZZ Resection of Appendix, Percutaneous Endoscopic Approach (ICD-10-PCS; 2022-09-04)
PROC: 0W9J40Z Drainage of Pelvic Cavity with Drainage Device, Percutaneous Endoscopic Approach (ICD-10-PCS; principal; 2022-09-04 17:04)
DX: K80.12 Calculus of gallbladder with acute and chronic cholecystitis without obstruction (principal); K35.33 Acute appendicitis with perforation, localized peritonitis, and gangrene, with abscess; N70.93 Salpingitis and oophoritis, unspecified; E03.9 Hypothyroidism, unspecified; I10 Essential (primary) hypertension; G89.29 Other chronic pain; G43.909 Migraine, unspecified, not intractable, without status migrainosus; M54.9 Dorsalgia, unspecified; F17.210 Nicotine dependence, cigarettes, uncomplicated
CPT/HCPCS: 36415; 74177; 80053; 84703; 85007; 85025; 85027

== ENCOUNTER 2023-02-22 16:47 | Emergency (ER) | payer OTHER, MEDICAID ==
[~2023-02-22] VITALS: Ht 155 cm; Wt 63.5 kg
[~2023-02-22 16:47] MED LIST changes: +ACHD5005 PO; +DOXY100C5 PO; +METR-145 PO
--- NOTE | 2023-02-22 17:29 | ED GU-Female ---
General Chief Complaint: (<6 weeks) Stated Complaint: VAG BLEEDING/ 8 WEEKS Source: patient Exam Limitations: no limitations (PHILIP ORDOÑEZ APRN) History of Present Illness Date Seen by Provider: Feb 22, 2023 Time Seen by Provider: 16:56 Initial Comments 37-year-old female at approximately 10 weeks gestation presents to the ER with reports of vaginal bleeding starting today. She reports that she had 1 episode of pink-colored discharge when wiping. She thinks her last menstrual cycle was on 12/14/2022. Patient denies any abdominal pain. Denies dysuria. Patient does report significant lightheadedness. States that she feels as though she is going to pass out when she walks. She states she was seen at [facility] and was told that her hemoglobin was in the sevens. She states that she was told that she was supposed to follow-up, but has not done that because she states that she has just been sleeping all the time. She has not yet seen an [facility]. Shortly after arrival, patient requesting to leave, states that she just wants to go home and sleep. I encouraged patient to stay to be evaluated. Patient did become very dizzy with walking, became very hot, and felt like she was going to pass out. Patient was able to state that she is in the hospital, was unable to state the month. Patient's significant other states that patient had a significant amount of vaginal bleeding. States that he was covered in her blood. After the IV fluids administered, patient perked up and was able to provide a lot more information. She is now alert and oriented. At this time her boyfriend was not in the room. She states that she thinks she had a miscarriage approximately 2 to 3 weeks ago. She states that she has not yet had the heart to tell her boyfriend, so she did not want the say anything earlier when he was in the room. She states that she has been having bleeding for the last 2 to 3 weeks. States that she will have random gushes of large amounts of blood. She thinks she has had approximately 3 gushes of large amounts of blood in the last week. She states that when she was seen in [place], she went there for hypertension and swelling of her arms and legs. She states she is uncertain if they did a test on her at that time. She denies any black tarry stools, bloody or coffee-ground emesis. (PHILIP ORDOÑEZ APRN) Allergies and Home Medications Allergies Coded Allergies: No Known Drug Allergies (Unverified , 06/18/07) Patient Home Medication List Home Medication List Reviewed: Yes (PHILIP ORDOÑEZ APRN) Doxycycline Hyclate (Doxycycline Hyclate) 100 Mg Capsule, 100 MG PO BID Prescribed by: DIEGO RICHEY on 09/05/22 1057 Hydrocodone/Acetaminophen (Hydrocodone-Acetamin 5-325 mg) 5 Mg-325 Mg Tablet, 1 TAB PO Q4H PRN for PAIN-MODERATE (5-7) Prescribed by: DIEGO RICHEY on 09/05/22 1100 Metronidazole (Metronidazole) 500 Mg Tablet, 500 MG PO BID Prescribed by: DIEGO RICHEY on 09/05/22 1057 Vit/Fe Fumarate/Fa ( 1-1 Tablet) 1 Each Tablet, (Reported) Entered as Reported by: NIKOS PRINCE on 05/21/09 1635 Review of Systems Review of Systems Constitutional: see HPI (PHILIP ORDOÑEZ APRN) Past Vuyabua-Ygsbuz-Jsdyjr Hx Immunizations Up To Date Second COVID19 Vaccination Juan: YES (PHILIP ORDOÑEZ APRN) Seasonal Allergies Seasonal Allergies: No (PHILIP ORDOÑEZ APRN) Past Medical History Surgery/Hospitalization HX: HTN, HYPOTHYROID Surgeries: No Respiratory: No Currently Using CPAP: No Currently Using BIPAP: No Cardiac: Yes Hypertension Neurological: Yes Headaches /Migraines Reproductive Disorders: No Genitourinary: No Gastrointestinal: Yes Gall Bladder Disease Musculoskeletal: Yes Chronic Back Pain Endocrine: Yes Hypothyroidsim HEENT: No Loss of Vision: Denies Hearing Impairment: Denies Cancer: No Psychosocial: No Integumentary: No (PHILIP ORDOÑEZ APRN) Family Medical History Heart Disease, Diabetes (PHILIP ORDOÑEZ APRN) Physical Exam Vital Signs Vital Signs - First Documented 02/22/23 17:00 Temp 36.5 Pulse 90 Resp 14 B/P (MAP) 161/99 (119) Pulse Ox 97 O2 Delivery Room Air (ORTIZ ROSAS MD) Vital Signs Capillary Refill : (PHILIP ORDOÑEZ APRN) Height, Weight, BMI Height: '" Weight: lbs. oz. kg; 26.43 BMI Method: General Appearance: other (Appears fatigued, difficult to answer questions) Neck: supple, normal inspection Cardiovascular: regular rate, rhythm Respiratory: lungs clear, normal breath sounds, no respiratory distress, no ac cessory muscle use Gastrointestinal: normal bowel sounds, non tender, soft Pelvic: normal external exam, vaginal bleeding (Moderate amount in canal), other (Os open, no active bleeding from os) Extremities: normal range of motion, normal inspection Neurologic/Psychiatric: alert, other (Disoriented to time) Skin: normal color, warm/dry (PHILIP ORDOÑEZ APRN) Progress/Results/Core Measures Suspected Sepsis SIRS Temperature: Pulse: Respiratory Rate: Laboratory Tests 02/22/23 17:49: White Blood Count 7.4 Blood Pressure / Mean: Laboratory Tests 02/22/23 17:49: Creatinine 0.70, Platelet Count 480H, Total Bilirubin 0.3 (PHILIP ORDOÑEZ APRN) Results/Orders Lab Results Laboratory Tests Test 02/22/23 17:49 02/22/23 18:48 02/22/23 19:03 Range/Units White Blood Count 7.4 4.3-11.0 10^3/uL Red Blood Count 3.98 3.80-5.11 10^6/uL Hemoglobin 7.8 L 11.5-16.0 g/dL Hematocrit 27 L 35-52 % Mean Corpuscular Volume 69 L 80-99 fL Mean Corpuscular Hemoglobin 20 L 25-34 pg Mean Corpuscular Hemoglobin Concent 29 L 32-36 g/dL Red Cell Distribution Width 18.2 H 10.0-14.5 % Platelet Count 480 H 130-400 10^3/uL Mean Platelet Volume 9.9 9.0-12.2 fL Immature Granulocyte % (Auto) 0 % Neutrophils (%) (Auto) 58 42-75 % Lymphocytes (%) (Auto) 27 12-44 % Monocytes (%) (Auto) 11 0-12 % Eosinophils (%) (Auto) 2 0-10 % Basophils (%) (Auto) 1 0-10 % Neutrophils # (Auto) 4.3 1.8-7.8 10^3/uL Lymphocytes # (Auto) 2.0 1.0-4.0 10^3/uL Monocytes # (Auto) 0.8 0.0-1.0 10^3/uL Eosinophils # (Auto) 0.1 0.0-0.3 10^3/uL Basophils # (Auto) 0.1 0.0-0.1 10^3/uL Immature Granulocyte # (Auto) 0.0 0.0-0.1 10^3/uL Sodium Level 137 135-145 MMOL/L Potassium Level 3.8 3.6-5.0 MMOL/L Chloride Level 102 98-107 MMOL/L Carbon Dioxide Level 26 21-32 MMOL/L Anion Gap 9 5-14 MMOL/L Blood Urea Nitrogen 6 L 7-18 MG/DL Creatinine 0.70 0.60-1.30 MG/DL Estimat Glomerular Filtration Rate 115 BUN/Creatinine Ratio 9 Glucose Level 97 70-105 MG/DL Calcium Level 8.9 8.5-10.1 MG/DL Corrected Calcium 9.1 8.5-10.1 MG/DL Total Bilirubin 0.3 0.1-1.0 MG/DL Aspartate Amino Transf (AST/SGOT) 56 H 5-34 U/L Alanine Aminotransferase (ALT/SGPT) 75 H 0-55 U/L Alkaline Phosphatase 49 40-136 U/L Total Protein 7.6 6.4-8.2 GM/DL Albumin 3.8 3.2-4.5 GM/DL Human Chorionic Gonadotropin, Quant < 5 <5 MIU/ML Serum Alcohol < 10 <10 MG/DL Urine Color YELLOW Urine Clarity CLEAR Urine pH 7.0 5-9 Urine Specific Gobles 1.020 1.016-1.022 Urine Protein NEGATIVE NEGATIVE Urine Glucose (UA) NEGATIVE NEGATIVE Urine Ketones NEGATIVE NEGATIVE Urine Nitrite NEGATIVE NEGATIVE Urine Bilirubin NEGATIVE NEGATIVE Urine Urobilinogen 0.2 < = 1.0 MG/DL Urine Leukocyte Esterase NEGATIVE NEGATIVE Urine RBC (Auto) 3+ H NEGATIVE Urine RBC 25-50 H /HPF Urine WBC NONE /HPF Urine Squamous Epithelial Cells 0-2 /HPF Urine Crystals NONE /LPF Urine Bacteria NEGATIVE /HPF Urine Casts NONE /LPF Urine Mucus NEGATIVE /LPF Urine Culture Indicated NO Urine Opiates Screen NEGATIVE NEGATIVE Urine Oxycodone Screen NEGATIVE NEGATIVE Urine Methadone Screen NEGATIVE NEGATIVE Urine Barbiturates Screen NEGATIVE NEGATIVE Ur Tricyclic Antidepressants Screen NEGATIVE NEGATIVE Urine Phencyclidine Screen NEGATIVE NEGATIVE Urine Amphetamines Screen NEGATIVE NEGATIVE Urine Methamphetamines Screen NEGATIVE NEGATIVE Urine Benzodiazepines Screen NEGATIVE NEGATIVE Urine Cocaine Screen NEGATIVE NEGATIVE Urine Cannabinoids Screen NEGATIVE NEGATIVE (ORTIZ ROSAS MD) Micro Results Microbiology 02/22/23 Wet Prep - Final, Complete (ORTIZ ROSAS MD) Vital Signs/I&O Capillary Refill : (PHILIP ORDOÑEZ APRN) Progress Note : Progress Note Patient seen and evaluated, resting in bed, patient is fatigued, difficult answering questions, states that she is having difficulty focusing. Based on exam and symptoms, workup initiated including CBC, CMP, hCG quantitative, Rh blood type, UA, urine . 1 L of IV fluids ordered. Shortly after arrival, patient stated she wanted to leave. States that she just wants to go home and sleep. While walking, patient became very dizzy, became hot, felt like she was going to pass out. I was able to encourage patient to stay for evaluation. IV was started, blood drawn, and IV fluids started. After IV fluids, patient perked up. She is now alert and oriented. She was able to answer several questions about what was going on. She states that she believes she had a miscarriage approximately 2 to 3 weeks ago. She states she has not had the heart to tell her boyfriend yet. This could explain partly while she was acting abnormal upon arrival. At this time her boyfriend is not in the room. She states that she has been having bleeding for the last 2 to 3 weeks. She reports intermittent gushes of large amount of blood, think she has had approximately 3 these episodes within the last week. 1907 Labs reviewed. CBC shows hemoglobin of 7.8, hematocrit 27. During patient's previous visit in August of this year, her hemoglobin was 10.1, she then had her gallbladder removed, the repeat hemoglobin the next day was 8.6. Patient states she had not had any labs drawn since then except in [place], she states she has not had any follow-up regarding the anemia after the cholecystectomy. CMP shows slightly elevated AST of 56, slightly elevated ALT 75. hCG quantitative negative. Urinalysis shows 3+ RBCs, negative for infection. Alcohol level negative. Urine drug screen negative. Pelvic exam performed with LIZBET Flores. Moderate amount of blood within the canal with a couple of small clots. Os is open, no active bleeding noted from the os. Wet prep negative for yeast, trichomonas, clue cells. I discussed with patient that we need to get an ultrasound to assess for retained products since she has been having bleeding for the last 2 to 3 weeks and her hemoglobin is significantly low. Patient is adamant about leaving. Long discussion had with patient regarding risks of her leaving without the ultrasound. Patient informed that she could develop sepsis and if she has retained products that we do not remove. Patient states she still wants to leave. Patient has been able to ambulate in the room without becoming dizzy receiving IV fluids. Patient will sign out AGAINST MEDICAL ADVICE. I discussed strict return precautions with patient as well as her boyfriend. I instructed boyfriend to monitor closely and if she becomes any worse that she needs to return. Patient instructed to call Dr. Kerr in the morning to schedule a follow-up appointment for this week. (PHILIP ORDOÑEZ APRN) Departure Impression Primary Impression: Miscarriage Disposition: 01 HOME, SELF-CARE Condition: Against Medical Advice Departure-Patient Inst. Decision time for Depature: 19:19 (PHILIP ORDOÑEZ APRN) Ref[facility]: [facility] [place] Primary Care Physician KAYLYNN KERR DO Patient Instructions: Miscarriage (DC) Add. Discharge Instructions: Call Dr. Kerr first thing in the morning, and let him know that you were seen in the ER for your miscarriage. You have chosen to leave AGAINST MEDICAL ADVICE, you are at risk of becoming septic or dying if you have retained products. Please return if you continue to have bleeding, you are very lethargic, you develop a fever, severe abdominal pain, or any other new, concerning, or worsening symptoms. All discharge instructions reviewed with patient and/or family. Voiced understanding. ATTENDING PHYSICIAN NOTE: I was physically present as attending physician in the emergency department during the care of this patient, but I was not directly involved in the decision making or delivery of care for this patient. (ORTIZ ROSAS MD) PHILIP ORDOÑEZ APRN Feb 22, 2023 17:29 ORTIZ ROSAS MD Feb 23, 2023 20:57
[2023-02-22] MEDS ORDERED: NS IV 1000 ML 1,000 ML IV SCH (17:30)
[2023-02-22 17:56] LABS: BASOPHILS # (AUTO) 0.1 10^3/uL (0.0-0.1); BASOPHILS % (AUTO) 1 % (0-10); EOSINOPHILS # (AUTO) 0.1 10^3/uL (0.0-0.3); EOSINOPHILS % (AUTO) 2 % (0-10); HEMATOCRIT 27 % (35-52); HEMOGLOBIN 7.8 g/dL (11.5-16.0); LYMPHOCYTES % (AUTO) 27 % (12-44); MEAN CORPUSCULAR HEMOGLOBIN 20 pg (25-34); MEAN CORPUSCULAR HGB CONC 29 g/dL (32-36); MEAN CORPUSCULAR VOLUME 69 fL (80-99); MEAN PLATELET VOLUME 9.9 fL (9.0-12.2); MONOCYTES # (AUTO) 0.8 10^3/uL (0.0-1.0); MONOCYTES % (AUTO) 11 % (0-12); NEUTROPHILS # (AUTO) 4.3 10^3/uL (1.8-7.8); NEUTROPHILS % (AUTO) 58 % (42-75); PLATELET COUNT 480 10^3/uL (130-400); WHITE BLOOD COUNT 7.4 10^3/uL (4.3-11.0)
[2023-02-22 18:23] LABS: ALANINE AMINOTRANSFERASE 75 U/L (0-55); ALBUMIN 3.8 GM/DL (3.2-4.5); ALKALINE PHOSPHATASE 49 U/L (40-136); BILIRUBIN,TOTAL 0.3 MG/DL (0.1-1.0); BUN/CREATININE RATIO 9; CALCIUM 8.9 MG/DL (8.5-10.1); CARBON DIOXIDE 26 MMOL/L (21-32); CHLORIDE 102 MMOL/L (98-107); GFR ESTIMATED 115; GLUCOSE 97 MG/DL (70-105); POTASSIUM 3.8 MMOL/L (3.6-5.0); SODIUM 137 MMOL/L (135-145); TOTAL PROTEIN 7.6 GM/DL (6.4-8.2)
[2023-02-22 19:00] LABS: BACTERIA,URINE NEGATIVE /HPF; BILIRUBIN,URINE NEGATIVE (NEGATIVE); CLARITY,URINE CLEAR; COLOR,URINE YELLOW; GLUCOSE, URINE (UA) NEGATIVE (NEGATIVE); KETONES,URINE NEGATIVE (NEGATIVE); LEUKOCYTE ESTERASE ,URINE NEGATIVE (NEGATIVE); NITRITE,URINE NEGATIVE (NEGATIVE); PROTEIN,URINE NEGATIVE (NEGATIVE); RBC,URINE 25-50 /HPF; SQUAMOUS EPITHELIAL CELL,UR 0-2 /HPF
[2023-02-22 19:13] VITALS: BP 159/113
[2023-02-22 19:19] LABS: AMPHETAMINE SCREEN, URINE NEGATIVE (NEGATIVE); BARBITURATE SCREEN URINE NEGATIVE (NEGATIVE); CANNABINOID SCREEN, URINE NEGATIVE (NEGATIVE); COCAINE SCREEN URINE NEGATIVE (NEGATIVE); METHADONE STAT NEGATIVE (NEGATIVE); OPIATE SCREEN URINE NEGATIVE (NEGATIVE); OXYCODONE STAT NEGATIVE (NEGATIVE); TRICYCLIC ANTIDEPRESSANTS SCRE NEGATIVE (NEGATIVE)
== END 2023-02-22 19:13 | disposition home or self-care (01) ==
LOC: EDUNIT# 16:47 → ER 16:50
DX: O03.9 Complete or unspecified spontaneous abortion without complication (principal)
CPT/HCPCS: 80053; 80306; 81000; 84702; 85025; 86900; 86901; 87210; 87491; 87591; 99284; G0480; 36415; 80320